=== PATIENT | female | born 1980 | race Caucasian/White ===

== ENCOUNTER 2016-09-27 17:32 | Emergency (ER) | payer OTHER ==
[~2016-09-27] VITALS: Ht 166.4 cm; Wt 108.0 kg
[~2016-09-27 17:32] MED LIST: ACETAMINOPHEN/H1 TAB PO; AMOXICILLIN875 M1 PO; DOCUSATE SODIU100 MG PO; HYDROCODONE BIT1 TA3 PO; HYDROCORTISONE2.51 TOP; IBUPROFEN800 MG PO; NASONEX17 GM NASB; NEXIUM20 MG PO; NEXIUM40 M1 PO; PRENATAL1 TA2 PO; PROVENTIL HFA6.7 GM INH
[2016-09-27] MEDS ORDERED: PRENATAL TABLE1 EAC2 PO (18:22)
--- NOTE | 2016-09-27 18:58 | ED GENERAL ADULT ---
History of Present Illness General Chief Complaint: General Adult Stated Complaint: HEADACHE, WHEEZING, BODY ACHES Source: patient, family, old records, EMS, friend, agency service representative, police, PCP, W10 Exam Limitations: no limitations Vital Signs & Intake/Output Vital Signs & Intake/Output Vital Signs Date Time Temp Pulse Resp B/P Pulse O2 O2 Flow FiO2 Ox Delivery Rate 09/27 1745 97.5 118 18 142/92 98 Room Air Allergies Coded Allergies: Sulfa (Sulfonamide Antibiotics) (HIVES 11/08/15) latex (HIVES 11/08/15) oxycodone (HEART RACES AND VOMITS 11/08/15) Reconcile Medications Vit No.130/Iron/FA ( Tablet) 27 MG IRON-800 MCG TABLET 1 TAB PO DAILY (Reported) Triage Note: 36 F STATES THAT SHE IS 10 WEEKS AND THAT SHE HAS A COUGH THAT STARTED THIS AM, NON PRODUCTIVE, COMPLAINS OF RASH TO BILATERAL INNER THIGHS. AND A HEADACHE SINCE WEDNESDAY. ALSO STATES THAT SHE HAS A HERNIA THAT WHEN SHE COUGHS HURTS : Yes Patient currently breastfeeds: No HPI: 36 year old female at 9 5/7 days who presents with headache in the frontal region which feels like a sharp band like distrubution. She had it on which attributed to emotional stress from Wednesday. On wednesday it started again at work and has been persistent ever since. She also complains of feeling dehydrated, dry cough, neck pain, low grade fever. 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 Tetanus Vaccine: 11/29/11 Surgical History Surgical History: non-contributory Psychosocial History Who do you live with Daughter What is your primary language Argentine Tobacco Use: Never used ETOH Use: denies use Illicit Drug Use: denies illicit drug use Progress Plan of Care: Orders Procedure Date/time Status RAPID VIRAL INFLUENZA A 09/27 1924 Active Current Medications Sig/Vijaya Start time Last Medication Dose Stop Time Status Admin Albuterol Sulfate 3 ML ONCE ONE 09/27 1929 UNVr (Proventil) 09/27 1930 [facility] 2.5 ML ONCE ONE 09/27 1929 UNVr (Atrovent) 09/27 1930 Prednisolone 30 MG ONCE ONE 09/27 1929 UNVr (Prelone) 09/27 1930 Microbiology 09/27 1924 NASOPHARYN: Influenza Virus A & B Rapid Smear - ORD Departure Departure Condition: Stable Referrals: PATRICIA HERNANDEZ,MARY Arredondo (PCP/Family) Departure Forms: Customer Survey General Discharge Information
--- NOTE | 2016-09-27 19:18 | ED DYSPNEA/ASTHMA COMPLAINT ---
History of Present Illness General Chief Complaint: General Adult Stated Complaint: HEADACHE, WHEEZING, BODY ACHES Source: patient Exam Limitations: no limitations Vital Signs & Intake/Output Vital Signs & Intake/Output Vital Signs Date Time Temp Pulse Resp B/P Pulse O2 O2 Flow FiO2 Ox Delivery Rate 09/27 2132 98.0 102 18 132/80 96 Room Air 09/27 1950 98 09/27 1745 97.5 118 18 142/92 98 Room Air ED Intake and Output 09/28 0000 09/27 1200 Intake Total 200 Output Total Balance 200 Intake, Oral 200 Patient 238 lb Weight Allergies Coded Allergies: Sulfa (Sulfonamide Antibiotics) (HIVES 11/08/15) latex (HIVES 11/08/15) oxycodone (HEART RACES AND VOMITS 11/08/15) Reconcile Medications Albuterol Sulfate (Ventolin Hfa) 90 MCG HFA.AER.AD 2 PUF INH Q4-6 PRN PRN WHEEZE Amoxicillin/Potassium Clav (Augmentin 875-125 Tablet) 875 MG-125 MG TABLET 1 TAB PO BID BRONCHITIS Prednisone 20 MG TABLET 1 TAB PO QDAY ASTHMA Vit No.130/Iron/FA ( Tablet) 27 MG IRON-800 MCG TABLET 1 TAB PO DAILY (Reported) Triage Note: 36 F STATES THAT SHE IS 10 WEEKS AND THAT SHE HAS A COUGH THAT STARTED THIS AM, NON PRODUCTIVE, COMPLAINS OF RASH TO BILATERAL INNER THIGHS. AND A HEADACHE SINCE WEDNESDAY. ALSO STATES THAT SHE HAS A HERNIA THAT WHEN SHE COUGHS HURTS Triage Nurses Notes Reviewed? yes Onset: Gradual Duration: day(s): Timing: recent history Severity: mild, moderate Activities at Onset: none Prior Episodes/Possible Cause: occasional episodes Modifying Factors: Improves With: rest. Associated Symptoms: wheezing : Yes Patient currently breastfeeds: No HPI: 36-year-old woman in prior good health, at 10 weeks gestation, Resents with 4 day history of headache URI-type symptoms cough with mild phlegm. She has a child with similar symptoms. She notes also a mild headache. She is without fever chest pain nausea vomiting diarrhea. She is otherwise well. Past History Travel History Traveled to [place] past 21 day No Medical History Any Pertinent Medical History? 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 No Review of Systems Review of Systems Constitutional: Reports: no symptoms. EENTM: Reports: no symptoms. Respiratory: Reports: no symptoms. Cardiovascular: Reports: no symptoms. GI: Reports: no symptoms. Genitourinary: Reports: no symptoms. Musculoskeletal: Reports: no symptoms. Skin: Reports: no symptoms. Neurological/Psychological: Reports: no symptoms. Hematologic/Endocrine: Reports: no symptoms. Immunologic/Allergic: Reports: no symptoms. All Other Systems: Reviewed and Negative Physical Exam Physical Exam General Appearance: well developed/nourished, no apparent distress Head: atraumatic, normal appearance Eyes: Bilateral: normal appearance. Ears, Nose, Throat: normal pharynx Neck: normal inspection, supple, full range of motion Respiratory: mild wheeze Cardiovascular: regular rate/rhythm Gastrointestinal: normal bowel sounds, soft, non-tender, no organomegaly Extremities: normal inspection Neurologic/Psych: no motor/sensory deficits, awake, alert, oriented x 3 Skin: intact, normal color, warm/dry Core Measures ACS in differential dx? No Severe Sepsis Present: No Septic Shock Present: No Progress Differential Diagnosis: asthma, bronchitis Plan of Care: Orders Procedure Date/time Status RAPID VIRAL INFLUENZA A 09/27 1924 Complete Microbiology 09/27 1934 NASOPHARYN: Influenza Virus A & B Rapid Smear - COMP Initial ED EKG: none Departure Departure Disposition: HOME OR SELF CARE Condition: Stable Clinical Impression Primary Impression: Bronchitis Referrals: MARY GOMEZ MD (PCP/Family) Departure Forms: Customer Survey General Discharge Information Prescriptions: Current Visit Scripts Prednisone 1 TAB PO QDAY #4 TAB Albuterol Sulfate (Ventolin Hfa) 2 PUF INH Q4-6 PRN PRN WHEEZE #1 INHAL Ref 1 Amoxicillin/Potassium Clav (Augmentin 875-125 Tablet) 1 TAB PO BID #14 TAB Comments Patient feels better after DuoNeb. Patient safe to go home with steroids and antibiotics albuterol. Close follow-up encouraged. Critical Care Note Critical Care Note Critical Care Time: non-applicable
[2016-09-27] MEDS ORDERED: PREDNISONE20 M1 PO (21:30)
[2016-09-27] MEDS ORDERED: VENTOLIN HFA18 GM INH (21:30)
[2016-09-27] MEDS ORDERED: AUGMENTIN 875-1 EACH PO (21:30)
[2016-09-27 21:32] VITALS: BP 132/80
== END 2016-09-27 22:05 ==
LOC: ERH 17:32
DX: O99.511 Diseases of the respiratory system complicating pregnancy, first trimester (principal); J40 Bronchitis, not specified as acute or chronic; Z3A.10 10 weeks gestation of pregnancy
CPT/HCPCS: 1263; 1395; 87804; 87804-59; J2650; J7512

== ENCOUNTER 2016-11-11 17:25 | Emergency (ER) | payer OTHER ==
[~2016-11-11] VITALS: Ht 167.6 cm; Wt 109.3 kg
[~2016-11-11 17:25] MED LIST changes: +AUGMENTIN 875-1 EACH PO; +PREDNISONE20 M1 PO; +PRENATAL TABLE1 EAC2 PO; +VENTOLIN HFA18 GM INH
--- NOTE | 2016-11-11 19:05 | ED GENERAL ADULT ---
History of Present Illness General Chief Complaint: General Adult Stated Complaint: PT HAD ANXIETY ATTACK AND IS 16 WKS Source: patient Exam Limitations: no limitations Vital Signs & Intake/Output Vital Signs & Intake/Output Vital Signs Date Time Temp Pulse Resp B/P B/P Pulse O2 O2 Flow FiO2 Mean Ox Delivery Rate 11/11 2045 97.5 90 18 156/83 98 Room Air 11/11 1758 97.9 94 18 130/85 99 Room Air ED Intake and Output 11/12 0000 11/11 1200 Intake Total 220 Output Total Balance 220 Intake, Oral 220 Patient 241 lb Weight Weight Reported by Patient Measurement Method Allergies Coded Allergies: Sulfa (Sulfonamide Antibiotics) (HIVES 11/08/15) latex (HIVES 11/08/15) oxycodone (HEART RACES AND VOMITS 11/08/15) Reconcile Medications Albuterol Sulfate (Ventolin Hfa) 90 MCG HFA.AER.AD 2 PUF INH Q4-6 PRN PRN WHEEZE Amoxicillin/Potassium Clav (Augmentin 875-125 Tablet) 875 MG-125 MG TABLET 1 TAB PO BID BRONCHITIS Prednisone 20 MG TABLET 1 TAB PO QDAY ASTHMA Vit No.130/Iron/FA ( Tablet) 27 MG IRON-800 MCG TABLET 1 TAB PO DAILY (Reported) Triage Note: STATES, "IM HAVING AN ANXIETY ATTACK". STATES SHE HAD AN ARGUMENT WITH HER CHILDREN'S FATHER, WHICH PRECIPITATED ATTACK. CRYING. WANTS TO BE CHECKED OUT, STATES SHE WAS SOB AT HOME, BETTER NOW. 16 WEEKS . Triage Nurses Notes Reviewed? yes Onset: Just prior to arrival Duration: hour(s): (1) Timing: remote history Injury Environment: home Severity: moderate Severity Numbers: 6 Modifying Factors: Improves With: other (time). : Yes Patient currently breastfeeds: No HPI: Patient is a 36-year-old female presenting to the emergency department she complained of abrupt onset of shortness of breath, anxiety that started just prior to arrival she was in an argument with an ex. She got nervous because she is currently 16 weeks and came in for evaluation. She reports that symptoms have resolved. Denies any chest pain. She did have palpitations. Denies any abdominal pain. No nausea or vomiting. Denies vaginal bleeding or discharge. No urinary symptoms. Denies taking anything to help with symptoms. She has a history of anxiety but does not take anything. (KERLINE GRIFFIN) Past History Travel History Traveled to [place] past 21 day No Medical History Any Pertinent Medical History? 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 No (KERLINE GRIFFIN) Review of Systems Review of Systems Constitutional: Reports: no symptoms. Comments Review of systems: See HPI, All other systems negative. Constitutional, no chills fever or weight loss HEENT: No visual changes no sore throat no congestion Cardiovascular: No orthopnea or ankle swelling Skin, no jaundice no rashes Respiratory: No cough sputum or hemoptysis GI: No nausea no vomiting : No dysuria No hematuria Muscle skeletal: no back pain, no neck pain, Neurologic: No numbness no confusion Psych: Positive stress and anxiety Heme/endocrine: No bruising no bleeding no polyuria or polydipsia Immunology: No splenectomy or history of AIDS (KERLINE GRIFFIN) Physical Exam Physical Exam General Appearance: well developed/nourished, no apparent distress, alert, awake , comfortable Comments: Well-developed well-nourished person in no acute distress HEENT: Pupils equally round and reactive to light and accommodation. Nose is atraumatic.Pharynx normal. No swelling or edema. Neck: Supple, no lymphadenopathy, normal range of motion without pain or tenderness Back: Nontender, no CVA tenderness. Cardiovascular: Regular rate and rhythms no murmurs rubs or gallops, normal JVP Respiratory: Chest nontender. No respiratory distress.breath sounds clear to auscultation bilaterally Abdomen: Soft, , nontender nondistended, no appreciable organomegaly. Normal bowel sounds. No ascites Extremity: No edema, no calf tenderness to palpation, normal and equal pulses. Neuro: Alert oriented x3, motor sensory normal, cranial nerves II through XII grossly intact. Skin: No appreciable rash on exposed skin, skin is warm and dry. Psych: Mood and affect is normal, memory and judgment is normal. Core Measures ACS in differential dx? No CVA/TIA Diagnosis: No Severe Sepsis Present: No Septic Shock Present: No (KERLINE GRIFFIN) Progress Differential Diagnoses I considered the following diagnoses in my evaluation of the patient: Panic attack, dehydration, pulmonary embolus Plan of Care: Orders Procedure Date/time Status URINALYSIS 11/11 1899 Complete EKG 11/11 1800 Active Laboratory Tests 11/11/161936: Urine Color YEL, Urine Clarity CLEAR, Urine pH 7.0, Ur Specific [place] 1.010, Urine Protein NEG, Urine Ketones NEG, Urine Nitrite NEG, Urine Bilirubin NEG, Urine Urobilinogen 0.2, Ur Leukocyte Esterase NEG, Ur Microscopic EXAM NOT REQUIRED, Urine Hemoglobin NEG, Urine Glucose NEG Initial ED EKG: NSR Comments: Patient has been a symptomatic since arrival. Symptoms started after he was argument with family member. Patient reports she's been under a lot of stress. Urinalysis is unremarkable. Vitals are stable. Discussed with Dr. San, patient cleared for discharge. tones are 150s, regular. (KERLINE GRIFFIN) Departure Departure Time of Disposition: 2033 Disposition: HOME OR SELF CARE Condition: Stable Clinical Impression Primary Impression: Anxiety Referrals: PATRICIA HERNANDEZ,MARY Arredondo (PCP/Family) Additional Instructions: Follow-up with your primary care physician call to make an appointment. Return for worsening symptoms or concerns. Departure Forms: Customer Survey General Discharge Information (KERLINE GRIFFIN) PA/SEWING TECHNIQUES DEMONSTRATOR Co-Sign Statement Statement: ED Attending supervision documentation- [] I saw and evaluated the patient. I have also reviewed all the pertinent lab results and diagnostic results. I agree with the findings and the plan of care as documented in the PA's/SEWING TECHNIQUES DEMONSTRATOR's documentation. [X] I have reviewed the ED Record and agree with the PA's/SEWING TECHNIQUES DEMONSTRATOR's documentation. [] Additions or exceptions (if any) to the PAs/SEWING TECHNIQUES DEMONSTRATOR's note and plan are summarized below: [] (ANÍBAL HERNANDEZ,CARLY) Critical Care Note Critical Care Note Critical Care Time: non-applicable (KERLINE GRIFFIN)
[2016-11-11 20:46] VITALS: BP 156/83
== END 2016-11-11 20:54 ==
LOC: ERH 17:25
DX: O26.92 Pregnancy related conditions, unspecified, second trimester (principal); F41.9 Anxiety disorder, unspecified
CPT/HCPCS: 81003; 93005; 93010

== ENCOUNTER 2016-11-28 11:29 | Emergency (ER) | payer OTHER ==
[~2016-11-28] VITALS: Ht 167.6 cm; Wt 109.3 kg
--- NOTE | 2016-11-28 13:00 | ED GI/GU/ABDOMINAL COMPLAINT ---
See Addendum History of Present Illness General Chief Complaint: General Adult Stated Complaint: 19 WEEKS , NAUSEA/FEVER SINCE WEDNESDAY Source: patient Exam Limitations: no limitations Vital Signs & Intake/Output Vital Signs & Intake/Output Vital Signs Date Time Temp Pulse Resp B/P B/P Pulse O2 O2 Flow FiO2 Mean Ox Delivery Rate 11/28 1411 98.4 83 18 124/67 98 Room Air 11/28 1306 Room Air 11/28 1145 98.1 112 18 137/80 97 Room Air Allergies Coded Allergies: Sulfa (Sulfonamide Antibiotics) (HIVES 11/28/16) latex (HIVES 11/28/16) oxycodone (HEART RACES AND VOMITS 11/28/16) Reconcile Medications Ondansetron (Zofran Odt) 4 MG TAB.RAPDIS 1 TAB SL TID PRN nausea/vomiting Vit No.130/Iron/FA ( Tablet) 27 MG IRON-800 MCG TABLET 1 TAB PO DAILY (Reported) Triage Note: TRIAGE: PATIENT TO ER FROM HOME W/ NAUSEA SINCE WEDNESDAY, PATIENT STATES "COULD FEEL MY BABY MOVE FOR A FEW WEEKS AND HAVN'T FELT ANY MOVEMENT SO FAR." . SENT IN BY THE ON-CALL OB. PATIENT 19 WEEKS , DUE DATE 04/27/17, OB IS DR. DAWKINS. Triage Nurses Notes Reviewed? yes ? y Is pt currently ? No HPI: Ms. Ball is a 36 yo f 19 wks w/ PMH of GERD, anxiety and anemia resenting to the emergency department for epigastric pain as well as nausea and vomiting. Patient states she vomited twice this morning. She's been feeling nauseated yesterday and today as if she was going to morning sickness all over again. Patient states she feels that she has a viral illness however she has been unable to feel the baby move in 1-2 days. She called her OBs office and spoke to Dr. Rodríguez, the physician tanner rotary drum continuous process who told her she might have to come to the ED to get some labs. Patient endorses low-grade fever of 99-100. No chills. No chest pain, shortness of breath, cough, diarrhea. Patient denies any dysuria, but does endorse some urinary frequency. (OLLIE HERNANDEZ,KAREN) Past History Travel History Traveled to [place] past 21 day No Medical History Any Pertinent Medical History? 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 No (KAREN LEVIN MD) Review of Systems Review of Systems Constitutional: Reports: see HPI. Comments Review of systems: See HPI, All other systems negative. Constitutional: no chills, no fever, no malaise, no weight loss HEENT: No visual changes, no sore throat, no congestion, no ear pain Cardiovascular: No chest pain , no palpitation , no orthopnea Skin: no rashes, no change in skin Respiratory: No dyspnea no cough no sputum no hemoptysis GI: No nausea no vomiting, no diarrhea, no bloating/constipation : No dysuria No hematuria, no frequency, no discharge Musculoskeleletal: No joint pain, no joint swelling, no back pain, no neck pain, Neurologic: No numbness no confusion, no headache Psych: No depression Heme/endocrine: No bruising no bleeding Immunology: No lymphadenopathy (KAREN LEVIN MD) Physical Exam Physical Exam General Appearance: well developed/nourished, no apparent distress, alert, awake Head: atraumatic, normal appearance Eyes: Bilateral: normal appearance, PERRL, EOMI, normal inspection. Ears, Nose, Throat, Mouth: hearing grossly normal, moist mucous membrane Neck: normal inspection, supple, full range of motion Respiratory: normal breath sounds, chest non-tender, no respiratory distress Cardiovascular: regular rate/rhythm, no peripheral edema Gastrointestinal: normal bowel sounds, soft, non-tender, gravid uterus palpable 2-3 cm below the umbilicus Back: normal inspection, normal range of motion Extremities: normal range of motion Skin: intact, normal color, warm/dry Core Measures ACS in differential dx? No Severe Sepsis Present: No Septic Shock Present: No (KAREN LEVIN MD) Progress Differential Diagnosis: intrauterine , PID/cervicitis, peptic ulcer, PUD/GERD, threatened AB, UTI/pyelo Plan of Care: Orders Procedure Date/time Status URINALYSIS 11/28 1239 Complete COMPREHENSIVE METABOLIC PANEL 11/28 1239 Complete CBC WITHOUT DIFFERENTIAL 11/28 1239 Complete Laboratory Tests 11/28/16 1517: Urinalysis LIGHT H, Urine Color STRAW, Urine Clarity HAZY H, Urine pH 6.5, Ur Specific [place] 1.010, Urine Protein NEG, Urine Ketones NEG, Urine Nitrite NEG, Urine Bilirubin NEG, Urine Urobilinogen 0.2, Ur Leukocyte Esterase NEG, Ur Microscopic SEDIMENT EXAMINED, Urine RBC RARE, Urine WBC 1-3 H, Ur Epithelial Cells MOD H, Urine Bacteria FEW H, Urine Mucus RARE, Urine Hemoglobin NEG, Urine Glucose NEG 11/28/16 1254: Anion Gap 10, Estimated GFR > 60, BUN/Creatinine Ratio 14.0, Glucose 122 H, Calcium 8.7, Total Bilirubin 0.4, AST 14, ALT 27, Alkaline Phosphatase 67, Total Protein 6.2 L, Albumin 3.5, Globulin 2.7, Albumin/Globulin Ratio 1.3, CBC w Diff NO MAN DIFF REQ, RBC 4.10 L, MCV 78.1 L, MCH 25.8 L, RDW 16.8 H, MPV 7.5, Gran % 74.0, Lymphocytes % 18.0 L, Monocytes % 6.2, Eosinophils % 1.5, Basophils % 0.3, Absolute Granulocytes 7.4 H, Absolute Lymphocytes 1.8, Absolute Monocytes 0.6, Absolute Eosinophils 0.1, Absolute Basophils 0, PUBS MCHC 33.0 36 yo f w/ nausea, vomiting and upper back pain. Patient is generally well appearing and not in any acute discomfort. She's had 2-3 episodes of vomiting today as well as several episodes yesterday. Likely this nausea vomiting is related to her normal . Patient does have a confirmed IUP with multiple ultrasounds. Patient estimates that she is at 19 weeks by LMP and her due date is 04/27. He states that she's been unable to feel the baby move for the past 24 hours which is something she normally can feel. Likely this is worsening GERD. We'll give Zofran and IV fluids. Plan to give by mouth challenge and reassess. Labs otherwise unremarkable. We'll obtain ultrasound to assess for movement. Ultrasound positive for viability. Patient given Zofran with significant improvement in symptoms. She is tolerating by mouth. Would like Rx for home. Will administer Zofran ODT's and have follow-up with her KEG HEADER in several days. (KAREN LEVIN MD) Initial ED EKG: none (KAREN LEVIN MD) Departure Departure Time of Disposition: 1555 Disposition: STILL A PATIENT Condition: Stable Clinical Impression Primary Impression: Nausea & vomiting Qualifiers: Vomiting type: unspecified Vomiting Intractability: non-intractable Qualified Code: R11.2 - Nausea with vomiting, unspecified Secondary Impressions: GERD (gastroesophageal reflux disease) Qualifiers: Esophagitis presence: esophagitis presence not specified Qualified Code: K21.9 - Gastro-esophageal reflux disease without esophagitis Referrals: NEHEMIAS JOSEPH MD (PCP/Family) Additional Instructions: Please use a Zofran sublingual as needed for nausea and vomiting. Try to eat smaller meals and break them apart as they could be GERD with the increased intra-abdominal pressure (from the baby). Make sure you drink plenty of fluids and keep well-hydrated while you're . If you develop burning when you urinate, increased frequency or any other concerning symptoms please return to the ED for evaluation. Departure Forms: Customer Survey General Discharge Information Prescriptions: Current Visit Scripts Ondansetron (Zofran Odt) 1 TAB SL TID PRN nausea/vomiting #30 TAB (KAREN LEVIN MD) Resident Co-Sign Statement Statement: ED Attending supervision documentation- [X] I saw and evaluated the patient. I have also reviewed all the pertinent lab results and diagnostic results. I agree with the findings and the plan of care as documented in the Resident's documentation. [X] I have reviewed the ED Record and agree with the Resident's documentation. [] Additions or exceptions (if any) to the Resident's note and plan are summarized below: [] (JOJO HERNANDEZ,ASHA Garcia)
[2016-11-28 13:02] LABS: ABSOLUTE BASOPHIL COUNT 0 /CUMM (0.0-0.2); ABSOLUTE EOSINOPHIL COUNT 0.1 /CUMM (0.0-0.7); ABSOLUTE GRANULOCYTE CT 7.4 /CUMM (1.4-6.5); ABSOLUTE LYMPH COUNT 1.8 /CUMM (1.2-3.4); ABSOLUTE MONOCYTE COUNT 0.6 /CUMM (0.10-0.60); BASOPHIL % 0.3 % (0.0-2.0); EOSINOPHIL % 1.5 % (0-5); MEAN CORPUSCULAR HGB 25.8 PG (27.0-31.0); MEAN CORPUSCULAR VOLUME 78.1 FL (81.0-99.0); MEAN PLATELET VOLUME 7.5 FL (7.4-10.4); PLATELET COUNT 283 /CUMM (130-400); RBC DISTRIBUTION WIDTH 16.8 % (11.5-14.5)
--- NOTE | 2016-11-28 14:28 | ULTRASOUND REPORT ---
EXAMINATION: US , VIABILITY CLINICAL INFORMATION: 36-year-old female at 19 weeks of with nausea and vomiting. Unable to feel movement. Evaluate viability. COMPARISON: None TECHNIQUE: Sonographic imaging of the pelvis was performed for viability assessment using a curved 5 MHz transabdominal transducer. FINDINGS: Within the endometrial cavity, there is a single viable fetus that has a heart rate of 145 bpm. Normal movement is observed. There is a grade 1 anterior, fundal placenta. Normal amniotic fluid volume is seen. The following measurements were acquired: Head circumference, 16.29 cm (gestational age of 19 weeks, 1 day). BPD, 4.3 cm (19 weeks, 1 day) Femur length, 2.96 cm (19 weeks, 1 day) The estimated gestational age based on ultrasound is 19 weeks, 1 day, which is concordant with the clinical dates. The estimated date of delivery is 04/23/2017. IMPRESSION: Single viable intrauterine gestation with ultrasound estimated age of 19 weeks, 1 day.
[2016-11-28] MEDS ORDERED: ZOFRAN ODT4 M1 SL (16:01)
[2016-11-28 16:10] VITALS: BP 125/68
== END 2016-11-28 16:16 ==
LOC: ERH 11:29
PROVIDERS: Emergency Medicine
DX: O99.612 Diseases of the digestive system complicating pregnancy, second trimester (principal); K21.9 Gastro-esophageal reflux disease without esophagitis; Z3A.19 19 weeks gestation of pregnancy
CPT/HCPCS: 81001; 96374; J2405

== ENCOUNTER → 2017-11-03 | Day surgery (SDC) | payer OTHER ==
--- NOTE | 2017-11-02 19:38 | History & Physical Pre-Op ---
General Information and HPI History of Present Illness: 37-year-old 4 para 4 with chronic menorrhagia desires NovaSure ablation. 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 EENTM: Reports: no symptoms. Cardiovascular: Reports: no symptoms. Respiratory: Reports: no symptoms. GI: Reports: no symptoms. Genitourinary: Reports: no symptoms. Musculoskeletal: Reports: no symptoms. Skin: Reports: no symptoms. Neurological/Psychological: Reports: no symptoms. Hematologic/Endocrine: Reports: no symptoms. Immunologic/Allergic: Reports: no symptoms. All Other Systems: Reviewed and Negative Exam & Diagnostic Data Last 24 Hrs of Vital Signs/I&O Intake & Output 11/02 1600 11/02 0800 11/02 0000 Intake Total Output Total Balance Patient 230 lb Weight Physical Exam: HEENT: Normocephalic atraumatic Chest: Clear to auscultation bilaterally Cardiovascular: Normal S1-S2 Abdomen: Obese, nontender Pelvic: Deferred OR Extremities: No clubbing cyanosis mild edema Assessment/Plan Assessment/Plan: Chronic menorrhagia Plan: D&C, hysteroscopy, NovaSure ablation As Ranked By This Provider Problem List: 1. Menorrhagia
[~2017-11-03] VITALS: Ht 167.6 cm; Wt 104.3 kg
[~2017-11-03] MED LIST changes: +CYCLOBENZAPRINE5 M2 PO; +DOCUSATE SODIU100 M3 PO; +FERROUS SULFAT325 M2 PO; +HYDROCODON-ACE1 EAC2 PO; +IBUPROFEN800 M1 PO; +LEXAPRO10 M1 PO; +ZOFRAN ODT4 M1 SL
--- NOTE | 2017-11-04 09:53 | Operative Report ---
Operative/Inv Procedure Report Surgery Date: 11/03/17 Name of Procedure: D&C hysteroscopy NovaSure ablation Pre-Operative Diagnosis: Menorrhagia Post-Operative Diagnosis: Same Estimated Blood Loss: less than 50ml Surgeon/Hydraulic Lift Driver: Chance Jacobo MD Anesthesia: moderate sedation Operative/Procedure Note Note: The patient was brought to the operating room and placed on the OR table in the dorsal supine position. She was given adequate anesthesia and repositioned in a modified dorsal lithotomy. She was prepped and draped in usual sterile fashion. A weighted speculum was inserted into the vagina with help of a Annita retractor a single-toothed tenaculum was attached to the anterior lip of the cervix. Cervix was injected with 1% lidocaine with epinephrine 2-1/2 mL in each quadrant. An endocervical curettage was performed revealing a small amount of tissue. The uterus is then sounded to 10 cm. X was serially dilated to accommodate the hysteroscope. Hysteroscope was placed into the fundus and the saline infusion was activated. There were shaggy endometrium noted throughout the uterus however there were no polyps or fibroids noted. The hysteroscope was then removed. An endometrial curettage was performed at this point revealing a moderate amount of tissue. The NovaSure apparatus was placed into the uterus and the fan was opened to a width of 4-1/2 cm. The ablation lasted approximately at 111 W of power. At the end of the procedure the fan was closed and removed and noted to be intact. There was some active bleeding from both tenaculum sites and both sites were sutured with a [id number] of 3-0 Polysorb. At the end of the procedure hemostasis was good. The patient was awakened and sent to recovery in good condition. All needle, sponge, and inspected counts were correct at the end of the procedure 2
== END ==
LOC: STS 00:43
DX: N92.0 Excessive and frequent menstruation with regular cycle (principal); K21.9 Gastro-esophageal reflux disease without esophagitis; E66.9 Obesity, unspecified
CPT/HCPCS: 81025; J2250